=== PATIENT | male | born 2000 | race Caucasian/White ===

== ENCOUNTER → 2023-02-07 14:50 | Outpatient (CLI) | payer OTHER, SELFPAY ==
[2023-02-07 19:58] LABS: Appearance Urine UA CLEAR; Bilirubin Urine UA NEGATIVE (NEGATIVE); Color Urine UA YELLOW; Glucose Urine UA NEGATIVE (Negative); Ketones Urine UA NEGATIVE (NEGATIVE); Leukocyte Esterase Urine UA NEGATIVE (NEGATIVE); Nitrite Urine UA NEGATIVE (Negative); Occult Blood Urine UA NEGATIVE (Negative); Protein Urine UA NEGATIVE (Negative); Specific Gravity Urine UA 1.015 (1.000-1.035); pH Urine UA 7.5 (4.5-8.0)
[2023-02-07 20:17] LABS: Bacteria Urine None Seen; Culture Indicated Urine Cult Not Indicated; RBC Urine 0-1/HPF (0-5/HPF); Squamous Epithelial Cell Urine 0-1 /HPF (0-5/HPF); WBC Urine 0-1/HPF (0-5/HPF)
[2023-02-07 21:28] LABS: Urine N gonorrhoeae NOT DETECTED
[2023-02-07 21:30] LABS: Urine Chlamydia DETECTED
== END ==
PROVIDERS: PCP Pediatrics; Visit Provider Pediatrics
DX: R30.0 Dysuria (principal)
CPT/HCPCS: 81001; 87491; 87591